=== PATIENT | male | born 1995 | race Caucasian/White ===

== ENCOUNTER 2017-01-20 06:50 | Emergency (ER) | payer OTHER ==
[~2017-01-20 06:50] MED LIST: CONCERTA PO; ZOL50 PO
[2017-01-20 09:08] VITALS: BP 123/87
== END 2017-01-20 11:33 | disposition home or self-care (01) ==
LOC: ED 06:50
DX: S93.601A Unspecified sprain of right foot, initial encounter (principal); F90.9 Attention-deficit hyperactivity disorder, unspecified type; F42.9 Obsessive-compulsive disorder, unspecified; W17.89XA Other fall from one level to another, initial encounter; Y93.89 Activity, other specified; Y92.89 Other specified places as the place of occurrence of the external cause; Y99.8 Other external cause status
CPT/HCPCS: Q0092